=== PATIENT | male | born 1975 | race Caucasian/White ===

== ENCOUNTER 2019-04-07 09:48 | Emergency (ER) | payer OTHER ==
--- OUTSIDE RECORDS SUMMARY | 2019-04-07 09:50 | XMS REPORT ---
:1975 Author Organization e[employer] Care Team Providers Name Role Phone Hendrix, Na Provider Role Unavailable Allergies, Adverse Reactions, Alerts Substance Reaction Event Type N.K.D.A. Info Not Available Non Drug Allergy Problems Problem Type Condition Code Onset Dates Condition Status Problem Mixed hyperlipidemia E78.2 Active Problem Hypercalcemia E83.52 Active Problem Elevated LFTs R79.89 Active Problem Nonalcoholic fatty liver disease K76.0 Active Problem Elevated blood pressure reading in R03.0 Active office without diagnosis of hypertension Problem Testicular abnormality N50.9 Active Problem Family history of diabetes mellitus Z83.3 Active Problem Hyperlipidemia E78.5 Active Problem Amblyopia suspect, bilateral H53.043 Active Problem Lumbar radiculopathy M54.16 Active Assessment Nonalcoholic fatty liver disease K76.0 Active Assessment Hyperlipidemia E78.5 Active Assessment Needs flu shot Z23 Active Assessment Elevated serum globulin level R77.1 Active Problem Chronic fatigue R53.82 Active Medications Medication Code Code Instructions Start End Date Status Dosage System Date Fish Oil ND 38970333784 1200 MG Orally Active 1 capsule twice a day Gemfibrozil NDC 97189901310 600 MG Active TAKE 1 TABLET BY MOUTH EVERY DAY Restasis ND 25085260358 0.05 % Active 1 drop into Ophthalmic Twice affected a day eye Gemfibrozil ND 30687284371 600 MG Active TAKE 1 TABLET BY MOUTH EVERY DAY Results No Known Results Immunizations Vaccine Administration Date Afluria single dose Jan 02, 2019 Summary Purpose eClinicalWorks Submission
--- OUTSIDE RECORDS SUMMARY | 2019-04-07 09:50 | XMS REPORT ---
:1975 Author Organization [employer] Care Team Providers Name Role Phone Hendrix, Na Provider Role Unavailable Allergies, Adverse Reactions, Alerts Substance Reaction Event Type N.K.D.A. Info Not Available Non Drug Allergy Problems Problem Type Condition Code Onset Dates Condition Status Problem Hypercalcemia E83.52 Active Problem Family history of diabetes mellitus Z83.3 Active Problem Mixed hyperlipidemia E78.2 Active Problem Testicular abnormality N50.9 Active Problem Nonalcoholic fatty liver disease K76.0 Active Problem Constipation, unspecified K59.00 Active constipation type Problem Hyperlipidemia E78.5 Active Problem Lumbar radiculopathy M54.16 Active Problem Elevated blood pressure reading in R03.0 Active office without diagnosis of hypertension Problem Amblyopia suspect, bilateral H53.043 Active Assessment Encounter for screening fecal Z12.11 Active occult blood testing Assessment Hemorrhoids with complication K64.8 Active Assessment Constipation, unspecified K59.00 Active constipation type Problem Chronic fatigue R53.82 Active Assessment Rectal bleeding K62.5 Active Problem Elevated LFTs R79.89 Active Medications Medication Code Code Instructions Start End Date Status Dosage System Date Fish Oil [facility] 44662258212 1200 MG Orally Active 1 capsule twice a day Gemfibrozil ND 95339012204 600 MG Active TAKE 1 TABLET BY MOUTH EVERY DAY Gemfibrozil ND 17724537288 600 MG Active TAKE 1 TABLET BY MOUTH EVERY DAY Restasis [facility] 68106494492 0.05 % Active 1 drop into Ophthalmic Twice affected a day eye Results No Known Results Summary Purpose eClinicalWorks Submission
--- NOTE | 2019-04-07 10:31 | ER ---
Nurse's Notes [facility] Name: Faisal Fitzpatrick Age: 43 yrs Sex: Male : 1975 Arrival Date: 04/07/2019 Time: 09:50 Bed 20 Private MD: Rhonda Hendrix Diagnosis: Viral syndrome Presentation: 04/07 10:00 Presenting complaint: Mother states: He has had a sorethroat and just not feeling well, sg denies N/V/D/Fever, reports she was diagnosed with flu so would like to have him seen for his symptoms. Transition of care: patient was not received from another setting of care. Onset of symptoms was April 07, 2019. Risk Assessment: Do you want to hurt yourself or someone else? Patient reports no desire to harm self or others. Initial Sepsis Screen: Does the patient meet any 2 criteria? No. Patient's initial sepsis screen is negative. Does the patient have a suspected source of infection? No. Patient's initial sepsis screen is negative. Care prior to arrival: None. 10:00 Method Of Arrival: Ambulatory sg 10:00 Acuity: BENY 4 sg Triage Assessment: 10:05 General: Appears in no apparent distress. slender, well groomed, Behavior is tw2 cooperative. Historical: - Allergies: 10:03 No Known Allergies; sg - Home Meds: 10:03 None [Active]; sg - PMHx: 10:03 None; sg - PSHx: 10:03 None; sg - Immunization history:: Adult Immunizations up to date. - Social history:: Smoking status: Patient/guardian denies using tobacco. - Ebola Screening: : Patient negative for fever greater than or equal to 101.5 degrees Fahrenheit, and additional compatible Ebola Virus Disease symptoms Patient denies exposure to infectious person Patient denies travel to an Ebola-affected area in the 21 days before illness onset No symptoms or risks identified at this time. Screenin:05 Abuse screen: Denies threats or abuse. Nutritional screening: No deficits noted. tw2 Tuberculosis screening: No symptoms or risk factors identified. Fall Risk None identified. Assessment: 10:05 General: Appears in no apparent distress. slender, Behavior is cooperative. Pain: tw2 Denies pain. Neuro: Level of Consciousness is awake, alert, obeys commands, Oriented to person, place, time, situation. Cardiovascular: Patient's skin is warm and dry. Respiratory: Airway is patent Respiratory effort is even, unlabored, Respiratory pattern is regular, symmetrical. GI: No signs and/or symptoms were reported involving the gastrointestinal system. : No signs and/or symptoms were reported regarding the genitourinary system. EENT: No signs and/or symptoms were reported regarding the EENT system. Derm: No signs and/or symptoms reported regarding the dermatologic system. Musculoskeletal: Range of motion: intact in all extremities. 10:32 Reassessment: Patient appears in no apparent distress at this time. No changes from tw2 previously documented assessment. Patient and/or family updated on plan of care and expected duration. Pain level reassessed. Patient is alert, oriented x 3, equal unlabored respirations, skin warm/dry/pink. Vital Signs: 10:02 BP 147 / 86; Pulse 78; Resp 17; Temp 98.4; Pulse Ox 100% on R/A; Pain 0/10; sg ED Course: 09:50 Patient arrived in ED. rg4 09:50 Rhonda Hendrix MD is Private Physician. rg4 10:03 Arm band placed on. EKG completed in triage. Results shown to MD. EKG completed in sg triage. Results shown to MD. 10:05 Johanny Morrison RN is Primary Nurse. tw2 10:05 Bed in low position. Adult w/ patient. tw2 10:06 Triage completed. sg 10:07 Donny Whitney MD is Attending Physician. ps1 10:28 Rhonda Hendrix MD is Referral Physician. ps1 10:32 No provider procedures requiring assistance completed. Patient did not have IV access tw2 during this emergency room visit. Administered Medications: No medications were administered Outcome: 10:28 Discharge ordered by . ps1 10:32 Discharged to home ambulatory, with family. tw2 10:32 Condition: stable 10:32 Discharge instructions given to patient, family, Instructed on discharge instructions, follow up and referral plans. Demonstrated understanding of instructions, follow-up care. 10:32 Patient left the ED. tw2 Signatures: Vlad Arrington RN RN Johanny Morrison RN RN tw2 Libra Pompa rg4 Donny Whitney MD MD ps1
--- NOTE | 2019-04-07 10:31 | EDPHYS ---
Physician Documentation [facility] Name: Faisal Fitzpatrick Age: 43 yrs Sex: Male : 1975 Arrival Date: 04/07/2019 Time: 09:50 Bed 20 Private MD: Rhonda Hendrix ED Physician Donny Whitney HPI: 04/07 10:22 This 43 yrs old Male presents to ER via Ambulatory with complaints of Flu ps1 Symptoms. 10:22 Mother has active flu. Patient has a cough which started yesterday. No fever, JOSHI, FER, ps1 NVD. Wanted to know if he needed to be treated. Patient has a history of MR and essentially non-verbal but can communicate with mother. . Historical: - Allergies: 10:03 No Known Allergies; sg - Home Meds: 10:03 None [Active]; sg - PMHx: 10:03 None; sg - PSHx: 10:03 None; sg - Immunization history:: Adult Immunizations up to date. - Social history:: Smoking status: Patient/guardian denies using tobacco. - Ebola Screening: : Patient negative for fever greater than or equal to 101.5 degrees Fahrenheit, and additional compatible Ebola Virus Disease symptoms Patient denies exposure to infectious person Patient denies travel to an Ebola-affected area in the 21 days before illness onset No symptoms or risks identified at this time. ROS: 10:22 Constitutional: Negative for fever, chills, and weight loss, Eyes: Negative for injury, ps1 pain, redness, and discharge, Cardiovascular: Negative for chest pain, palpitations, and edema, Abdomen/GI: Negative for abdominal pain, nausea, vomiting, diarrhea, and constipation, Back: Negative for injury and pain, MS/Extremity: Negative for injury and deformity, Skin: Negative for injury, rash, and discoloration, Neuro: Negative for headache, weakness, numbness, tingling, and seizure. 10:22 Respiratory: Positive for cough, with no reported sputum. Exam: 10:22 Constitutional: This is a well developed, well nourished patient who is awake, alert, ps1 and in no acute distress. Head/Face: Normocephalic, atraumatic. Eyes: Pupils equal round and reactive to light, extra-ocular motions intact. Lids and lashes normal. Conjunctiva and sclera are non-icteric and not injected. Chest/axilla: Normal chest wall appearance and motion. Nontender with no deformity. No lesions are appreciated. Cardiovascular: Regular rate and rhythm. No gallops, murmurs, or rubs. Normal PMI, no JVD. No pulse deficits. Respiratory: Lungs have equal breath sounds bilaterally, clear to auscultation and percussion. No rales, rhonchi or wheezes noted. No increased work of breathing, no retractions or nasal flaring. Abdomen/GI: Soft, non-tender, with normal bowel sounds. No distension or tympany. No guarding or rebound. No evidence of tenderness throughout. MS/ Extremity: Pulses equal, no cyanosis. Neurovascular intact. Full, normal range of motion. Vital Signs: 10:02 BP 147 / 86; Pulse 78; Resp 17; Temp 98.4; Pulse Ox 100% on R/A; Pain 0/10; sg MDM: 10:26 Data reviewed: vital signs, nurses notes, and as a result, I will discharge patient. ED ps1 course: Patient has intermittent cough. No other symptoms concerning for flu other than possible exposure. Was vaccinated. No tamiflu after discussion or risks vs benefits. . 10:28 Patient medically screened. ps1 Administered Medications: No medications were administered Disposition: 04/07/19 10:28 Discharged to Home. Impression: Viral syndrome. - Condition is Stable. - Discharge Instructions: Upper Respiratory Infection, Adult, [id number]. - Prescriptions for Tessalon Perles 100 mg Oral Capsule - take 1 capsule by ORAL route every 8 hours As needed; 15 capsule. - Medication Reconciliation Form, Thank You Letter, Antibiotic Education, Prescription Opioid Use form. - Follow up: Rhonda Hendrix MD; When: As needed; Reason: Further diagnostic work-up, Recheck today's complaints, Continuance of care, Re-evaluation by your physician. Follow up: Emergency Department; When: As needed; Reason: Fever > 102 F, Trouble breathing, Worsening of condition. - Problem is new. - Symptoms are resolved. Signatures: Vlad Arrington RN RN sg Johanny Morrison RN RN tw2 Donny Whitney MD MD ps1 Corrections: (The following items were deleted from the chart) 10:32 10:28 04/07/2019 10:28 Discharged to Home. Impression: Viral syndrome. Condition is tw2 Stable. Forms are Medication Reconciliation Form, Thank You Letter, Antibiotic Education, Prescription Opioid Use. Follow up: Rhonda Hendrix; When: As needed; Reason: Further diagnostic work-up, Recheck today's complaints, Continuance of care, Re-evaluation by your physician. Follow up: Emergency Department; When: As needed; Reason: Fever > 102 F, Trouble breathing, Worsening of condition. Problem is new. Symptoms are resolved. ps1
[2019-04-07 10:42] VITALS: BP 147/86; TEMP 98.4; O2SAT 100
== END 2019-04-07 10:32 | disposition home or self-care (01) ==
LOC: ER 09:48
DX: B34.9 Viral infection, unspecified (principal)
CPT/HCPCS: 99281

== ENCOUNTER 2021-10-28 15:33 | Emergency (ER) | payer OTHER ==
--- OUTSIDE RECORDS SUMMARY | 2021-10-28 15:35 | XMS REPORT | Continuity of Care Document ---
:1975 Author Organization [facility] t Address [address] [place] [address] Care Team Providers Name Role Phone Larry Hendrix Attending Clinician Unavailable Problems This patient has no known problems. Allergies, Adverse Reactions, Alerts This patient has no known allergies or adverse reactions. Medications Ordered Filled Start Stop Current Ordering Indication Dosage Frequency Signature Comments Components Source Medication Medication Date Date Medication? Clinician (SIG) Name Name Gemfibrozil Gemfibrozil Yes Na Hendrix TAKE 1 Common TABLET BY [facility] MOUTH - [facility] EVERY DAY [facility] Fish Oil Fish Oil Yes Na Hendrix 1 capsule Common [facility] Restasis Restasis Yes Na Hendrix 1 drop Co mmon into [facility] affected - [facility] eye [facility] Immunizations Ordered Immunization Filled Immunization Date Status Commen ts Source Name Name Afluria single dose Afluria single dose 2019-01-02 Completed [facility] 00:00:00 [facility] Procedures This patient has no known procedures. Encounters Start End Encounter Admission Attending Care Care Encounter Source Date/Time Date/Time Type Type Clinicians Facility Department ID 2021-10-25 Outpatient Simeon Na ST[facility] [id number] 2 Common 12:25:01 [facility] 2021-07-04 Outpatient Simeon Na [facility] [id number] 2 Common 16:31:00 [facility] 2021-05-04 Outpatient Simeon Na [facility] [id number] 2 Common 14:25:50 [id number] [facility] 2021-05-04 Outpatient Simeon Na [facility] [id number] 2 Common 13:26:33 [id number] [facility] 2021-05-04 Outpatient Hendrix, Na [facility]LMLC [facility] [id number] 2 Common 11:38:28 [id number] [facility] 2021-05-04 Outpatient Hendrix, Na [facility]LMLC [facility] [id number] 2 Common 11:17:41 [id number] [facility] 2021-05-04 Outpatient Hendrix, Na STLMLC [facility] [id number] 2 Common 11:17:16 [id number] [facility] 2021-07-28 2021-07-28 ambulatory [facility]LMLC [facility] [id number] Common 00:00:00 00:00:00 [facility] 2021-07-28 2021-07-28 ambulatory STLMLC [facility] [id number] Common 00:00:00 00:00:00 [facility] 2021-03-28 2021-03-28 ambulatory [facility]LMLC [facility] [id number] Common 00:00:00 00:00:00 [facility] 2020-11-25 2020-11-25 Outpatient [facility]C [facility] [id number] Common 00:00:00 00:00:00 [facility] 2020-07-01 2020-07-01 Outpatient [facility]LMLC [facility] [id number] Common 00:00:00 00:00:00 [facility] 2020-03-01 2020-03-01 Outpatient [facility]LMLC [facility] [id number] Common 00:00:00 00:00:00 [facility] 2019-11-27 2019-11-27 [facility] [id number] Common 10:20:00 10:20:[email or web address] [facility] 2019-08-27 2019-08-27 [facility] [id number] Common 10:20:00 10:20:[email or web address] [facility] 2019-04-21 2019-04-21 [facility] [id number] Common 14:40:00 14:40:00 [place] [address] [facility] ED 2019-02-27 2019-02-27 [facility] [id number] Common 08:20:00 08:20:00 [place] [address] [facility] ED 2019-01-02 2019-01-02 [facility] [id number] Common 10:40:00 10:40:00 [place] [address] [facility] ED 2018-09-13 2018-09-13 [facility] [id number] Common 09:40:00 09:40:00 [place] [address] [facility] ED 2018-05-17 2018-05-17 [facility] [id number] Common 11:15:00 11:15:00 [place] [address] [facility] ED 2018-01-21 2018-01-21 [facility] [id number] Common 14:00:00 14:00:00 [place] [address] [facility] ED 2018-01-21 2018-01-21 [facility] [id number] Common 12:20:00 12:20:00 [place] [address] [facility] ED 2017-11-15 2017-11-15 [facility] [id number] Common 09:45:00 09:45:00 [place] [address] [facility] ED 2017-11-12 2017-11-12 [facility] [id number] Common 09:15:00 09:15:00 [place] [address] [facility] ED 2017-08-17 2017-08-17 [facility] [id number] Common 14:00:00 14:00:00 t Specialty/U Sp [facility] Special[facility] rology - [facility] 2017-08-16 2017-08-16 [facility] [id number] Common 09:45:00 09:45:[address] [place] [address] [facility] ED Results This patient has no known results.
[2021-10-28] MEDS ORDERED: IBUPROFEN 400 MG TAB ONE (16:19)
[2021-10-28 16:21] LABS: SARS-CoV-2 Antigen Rapid Res Positive (Negative)
--- NOTE | 2021-10-28 17:20 | ER ---
Nurse's Notes [facility] Name: Faisal Fitzpatrick Age: 46 yrs Sex: Male : 1975 Arrival Date: 10/28/2021 Time: 15:35 Bed 18 Private MD: Rhonda Hendrix Diagnosis: Coronavirus infection, unspecified Presentation: 10/28 15:45 Chief complaint: Patient states: Fever, sleepy X 1 day. Coronavirus screen: Client ld1 presents with at least one sign or symptom that may indicate coronavirus-19. Standard/surgical mask placed on the client. Ebola Screen: No symptoms or risks identified at this time. Initial Sepsis Screen: Does the patient meet any 2 criteria? No. Patient's initial sepsis screen is negative. Does the patient have a suspected source of infection? No. Patient's initial sepsis screen is negative. Risk Assessment: Do you want to hurt yourself or someone else? Patient reports no desire to harm self or others. Onset of symptoms was October 28, 2021. 15:45 Method Of Arrival: Ambulatory ld1 15:45 Acuity: BENY 4 ld1 Triage Assessment: 15:46 General: Appears in no apparent distress. comfortable, Behavior is calm, cooperative, ld1 appropriate for age. Pain: Denies pain. EENT: No signs and/or symptoms were reported regarding the EENT system. Neuro: Level of Consciousness is awake, alert, obeys commands, Oriented to person, place, time, situation. Cardiovascular: Capillary refill < 3 seconds Patient's skin is warm and dry. Respiratory: Airway is patent Respiratory effort is even, unlabored. GI: Abdomen is flat, non-distended. : No signs and/or symptoms were reported regarding the genitourinary system. Derm: No signs and/or symptoms reported regarding the dermatologic system. Musculoskeletal: No signs and/or symptoms reported regarding the musculoskeletal system. Historical: - Allergies: 15:46 No Known Allergies; ld1 - Home Meds: 15:46 None [Active]; ld1 - PMHx: 15:46 Hypercholesterolemia; ld1 - PSHx: 15:46 None; ld1 - Immunization history:: Adult Immunizations up to date, Client reports receiving the 2nd dose of the Covid vaccine. - Social history:: Smoking status: Patient denies any tobacco usage or history of. Patient/guardian denies using alcohol. Screenin:51 Abuse screen: Denies threats or abuse. Nutritional screening: No deficits noted. [facility] Tuberculosis screening: No symptoms or risk factors identified. Fall Risk None identified. Assessment: 15:51 Reassessment: No changes from previously documented assessment. [facility] Vital Signs: 15:45 BP 132 / 82; Pulse 100; Resp 18; Temp 101.5(O); Pulse Ox 96% on R/A; Weight 81.65 kg; ld1 Height 5 ft. 10 in. (177.80 cm); Pain 0/10; 16:02 BP 123 / 65; Pulse 76; Resp 18; Pulse Ox 97% on R/A; bh1 16:42 BP 117 / 58; Pulse 72; Resp 20; Pulse Ox 100% on R/A; bh1 17:14 BP 112 / 62; Pulse 88; Resp 20; Pulse Ox 98% on R/A; 1 17:16 Temp 99.1(O); 1 15:45 Body Mass Index 25.83 (81.65 kg, 177.80 cm) [facility] ED Course: 15:35 Patient arrived in ED. mr 15:35 Rhonda Hendrix MD is Private Physician. mr 15:40 Tu Dudley PA is [facility] 15:40 Genaro Brown MD is Attending Physician. [facility] 15:46 Triage completed. ld1 15:46 Arm band placed on right wrist. 1 15:51 Adrianna Ruiz, NURYS is Primary Nurse. [facility] 15:51 No apparent distress. 1 15:51 Patient has correct armband on for positive identification. Pulse ox on. NIBP on. 1 15:51 No provider procedures requiring assistance completed. 1 16:02 Strep Sent. 1 16:02 Influenza Screen (a \T\ B) Sent. 1 16:02 SARS RAPID Sent. 1 16:03 No apparent distress. Resting quietly. Awaiting lab results. 1 16:43 No apparent distress. Resting quietly. Awaiting lab results. 1 17:14 No apparent distress. Resting quietly. Awaiting lab results. [facility] 17:19 Rhonda Hendrix MD is Referral Physician. [facility] 17:45 Patient did not have IV access during this emergency room visit. [facility] Administered Medications: 16:14 Drug: Ibuprofen 400 mg Route: PO; [facility] 16:14 Follow up: Response: No adverse reaction [facility] 17:45 Drug: Decadron (dexamethasone) 10 mg Route: PO; [facility] 17:45 Follow up: Response: No adverse reaction [facility] Medication: 15:51 VIS not applicable for this client. [facility] Outcome: 17:20 Discharge ordered by MD. guerrero 17:45 Discharged to home ambulatory. [facility] 17:45 Condition: good 17:45 Discharge instructions given to family, Instructed on discharge instructions, follow up and referral plans. medication usage, Demonstrated understanding of instructions, follow-up care, medications, Prescriptions given X 1. 17:46 Patient left the ED. [facility] Signatures: Tu Dudley PA PA jmm Rivera, Mary mr Dibbern, Lauren, RN RN 1 Adrianna Ruiz RN RN 1
--- NOTE | 2021-10-28 17:20 | EDPHYS ---
Physician Documentation [facility] Name: Faisal Fitzpatrick Age: 46 yrs Sex: Male : 1975 Arrival Date: 10/28/2021 Time: 15:35 Bed 18 Private MD: Rhonda Hendrix ED Physician Genaro Brown HPI: 10/28 15:45 This 46 yrs old Male presents to ER via Ambulatory with complaints of Fever. jmm 15:45 The patient reports fever, not measured (subjective). Onset: The symptoms/episode jmm began/occurred gradually, today. Associated signs and symptoms: Pertinent positives: chills, cough. It is unknown whether or not the patient has had similar symptoms in the past. Historical: - Allergies: 15:46 No Known Allergies; ld1 - Home Meds: 15:46 None [Active]; ld1 - PMHx: 15:46 Hypercholesterolemia; ld1 - PSHx: 15:46 None; ld1 - Immunization history:: Adult Immunizations up to date, Client reports receiving the 2nd dose of the Covid vaccine. - Social history:: Smoking status: Patient denies any tobacco usage or history of. Patient/guardian denies using alcohol. ROS: 15:45 Constitutional: Positive for body aches, chills. jmm 15:45 ENT: Positive for sore throat. 15:45 Respiratory: Positive for cough. 15:45 All other systems are negative. Exam: 15:45 Constitutional: This is a well developed, well nourished patient who is awake, alert, jmm and in no acute distress. Head/Face: atraumatic. Eyes: EOMI, no conjunctival erythema appreciated 15:45 Neck: Trachea midline, Supple Chest/axilla: Normal chest wall appearance and motion. Cardiovascular: Regular rate and rhythm. No edema appreciated Respiratory: Normal respirations, no respiratory distress appreciated Abdomen/GI: Non distended Back: Normal ROM Skin: General appearance color normal 15:45 ENT: Posterior pharynx: erythema, that is mild. 15:45 Musculoskeletal/extremity: ROM: intact in all extremities. 15:45 Skin: Appearance: Color: normal in color. 15:45 Neuro: Orientation: is normal, Mentation: is normal, Memory: is normal. 15:45 Psych: Behavior/mood is pleasant, cooperative. Vital Signs: 15:45 BP 132 / 82; Pulse 100; Resp 18; Temp 101.5(O); Pulse Ox 96% on R/A; Weight 81.65 kg; ld1 Height 5 ft. 10 in. (177.80 cm); Pain 0/10; 16:02 BP 123 / 65; Pulse 76; Resp 18; Pulse Ox 97% on R/A; bh1 16:42 BP 117 / 58; Pulse 72; Resp 20; Pulse Ox 100% on R/A; bh1 17:14 BP 112 / 62; Pulse 88; Resp 20; Pulse Ox 98% on R/A; bh1 17:16 Temp 99.1(O); bh1 15:45 Body Mass Index 25.83 (81.65 kg, 177.80 cm) ld1 MDM: 15:55 Patient medically screened. [facility] 17:12 Data reviewed: vital signs, nurses notes. [facility] 17:18 Counseling: I had a detailed discussion with the patient and/or guardian regarding: the [facility] historical points, exam findings, and any diagnostic results supporting the discharge/admit diagnosis, lab results, the need for outpatient follow up, to return to the emergency department if symptoms worsen or persist or if there are any questions or concerns that arise at home. ED course: Patient is alert and non toxic in appearance in the ED. No signs of resp distress. patient advised to follow up with pcp and otherwise given strict return precautions. patient understood and agrees with the plan of care. . 10/28 15:45 Order name: SARS RAPID; Complete Time: 16:31 [facility] 10/28 15:45 Order name: Influenza Screen (a \T\ B); Complete Time: 16:31 [facility] 10/28 15:45 Order name: Strep; Complete Time: 16:31 [facility] 10/28 16:24 Order name: Throat Culture EDMS Administered Medications: 16:14 Drug: Ibuprofen 400 mg Route: PO; [facility] 16:14 Follow up: Response: No adverse reaction [facility] 17:45 Drug: Decadron (dexamethasone) 10 mg Route: PO; [facility] 17:45 Follow up: Response: No adverse reaction [facility] Disposition Summary: 10/28/21 17:20 Discharge Ordered Location: Home [facility] Condition: Stable [facility] Diagnosis - Coronavirus infection, unspecified [facility] Followup: [facility] - With: Rhonda Hendrix MD - When: 1 - 2 days - Reason: Recheck today's complaints, Continuance of care, Re-evaluation by your physician Discharge Instructions: - Discharge Summary Sheet mary - COVID-19 mary Forms: - Medication Reconciliation Form mary - Thank You Letter yolanda - Antibiotic Education yolanda - Prescription Opioid Use yolanda Prescriptions: - Paxlovid (EUA) 150 mg x 2- 100 mg Oral tablet - take 3 tablet by ORAL route 2 times per day for 5 days per package directions; yolanda 1 packet; Refills: 0, Product Selection Permitted Signatures: Dispatcher [employer] EDMS Tu Dudley PA PA jmm Dibbern, Lauren, RN RN ld1 Adrianna Ruiz RN RN bh1
[2021-10-28] MEDS ORDERED: dexAMETHasone 4 MG TAB ONE (17:48)
[2021-10-28 18:41] VITALS: BP 112/62; O2SAT 98
[2021-10-28 18:43] VITALS: TEMP 99.1
== END 2021-10-28 17:46 | disposition home or self-care (01) ==
LOC: ER 15:33
DX: U07.1 COVID-19 (principal); E78.00 Pure hypercholesterolemia, unspecified
CPT/HCPCS: 87070; 36415; 87081; 87804 ×2; 99284; 87811; J8540